=== PATIENT | male | born 1965 | race Caucasian/White ===

== ENCOUNTER 2021-03-19 16:54 | Emergency (ER) | payer OTHER ==
[~2021-03-19] VITALS: Ht 175.3 cm; Wt 80.0 kg
[~2021-03-19 16:54] MED LIST: AZITHROMYCIN250 MG OR; CHOLESTEROL MED; SIMVASTATIN80 MG OR
[2021-03-19] MEDS ORDERED: TESSALON PERLE100 MG PO ×2 (18:16→18:52)
[2021-03-19 18:20] VITALS: BP 162/81
== END 2021-03-19 18:25 | disposition home or self-care (01) | DRG 866 ==
LOC: ED 16:54
DX: B34.9 Viral infection, unspecified (principal); F17.200 Nicotine dependence, unspecified, uncomplicated; Z20.822 Contact with and (suspected) exposure to COVID-19